=== PATIENT | female | born 1995 | race Asian ===

== ENCOUNTER 2019-05-12 20:57 | Inpatient (IN) | payer OTHER, MEDICAID ==
[~2019-05-12] VITALS: Ht 157.5 cm; Wt 64.9 kg
[2019-05-12 22:24] LABS: BASOPHIL % 0.2 % (0-2); PLATELET COUNT 230 x10^3mcL (130-400); RED CELL DISTRIBUTION WIDTH 13.4 % (11.5-14.5)
--- NOTE | 2019-05-12 22:31 | NUR ---
PT UNABLE TO PROVIDE URINE AT THIS TIME. MADE AWARE. PT DENIES POSSIBILITY OF AT THIS TIME
--- NOTE | 2019-05-12 22:33 | NUR ---
PT PRESENTS TO ED WITH C/O GENERALIZED WEAEKNESS AND NAUSEA. PT STATES THAT SHE HAD GASTRIC BYPASS ON 02/09 WHERE SHE LOST ALMOST 100 LBS SINCE THEN. PER PT STARTING ON SATURDAY SHE STARTED TO FEEL VERY WEAK AND NAUSEOUS AND HAS NOT BEEN ABLE TO EAT OR DRINK ANYTHING. PT SKIN WNL HOWEVER PT LIPS ARE DRY AND CRACKED. PT AXO X4. PT RESP ARE E/U. PT ABLE TO AMBULATE WITH STEADY GAIT. ABDOMEN IS SOFT/ROUND AND NONDISTENDED. PT INCISION IS CLEAN/DRY/INTACT AND PT DENIES ANY ABDOMINAL PAIN. NAD AT THIS TIME. PT CONNECTED TO FULL CM AND PULSE OX MONITORS. FAMILY AT BEDSIDE
[2019-05-12 22:53] LABS: ALBUMIN 4.3 g/dL (3.4-5.0); ALKALINE PHOSPHATASE 66 U/L (46-116); ALT/SGPT 10 U/L (14-59); AST/SGOT 23 U/L (15-37); BILIRUBIN TOTAL 1.07 mg/dL (0.20-1.00); CALCIUM 9.5 mg/dL (8.5-10.1); CARBON DIOXIDE 19.9 mmol/L (21-32); CHLORIDE SERUM 97 mmol/L (98-107); CREATININE SERUM 0.8 mg/dL (0.6-1.0); GFR1 > 60 mL/min; GLUCOSE SERUM 92 mg/dL (74-106); SODIUM SERUM 138 mmol/L (136-145)
[2019-05-12 22:55] LABS: POTASSIUM SERUM 2.1 mmol/L (3.5-5.1)
[2019-05-12 22:56] LABS: T3 TOTAL 0.51 ng/mL
[2019-05-12 23:05] LABS: FREE T4 0.55 ng/dL (0.76-1.46)
--- NOTE | 2019-05-12 23:19 | NUR ---
PT AMBULATED TO RESTROOM WITH STEADY GAIT AND STATES SHE FEELS NAUSEOUS AND LIKE SHE IS GOING TO HAVE DIARRHEA
[2019-05-12 23:29] LABS: FREE THYROXINE INDEX 1.2 ug/dL (1.4-4.5); T4(THYROXINE) 4.1 ug/dL (4.7-13.3)
[2019-05-13] VITALS (7 sets, daily range): BP systolic 91–110; BP diastolic 49–66; Ht 157.5 cm; Wt 64.9 kg
[2019-05-13 00:03] LABS: UA SPECIFIC GRAVITY 1.025 (1.005-1.035); microscopic required? YES; urine erythrocyte NEGATIVE (NEGATIVE)
[2019-05-13] MEDS ORDERED: LEVOTHYROXINE0.15 M2 (00:48)
[2019-05-13] MEDS ORDERED: OXYCODONE HYDRO10 M1 PO (00:49)
--- NOTE | 2019-05-13 00:53 | NUR ---
CARTER GOODSON AGREES TO HANG THE SECOND BAG OF POTASSIUM THAT WILL BE SENT UP WITH THE PT
--- NOTE | 2019-05-13 00:53 | NUR ---
REPORT GIVEN TO CARTER GOODSON
--- NOTE | 2019-05-13 01:05 | NUR ---
RECEIVED PT FROM ED VIA EYAL, CAME IN DUE TO WEAKNESS. AAOX4. DENIES HEADACHE/DIZZINESS. ABLE TO FOLLOW COMMANDS. NO SOB NOTED, LUNG SOUNDS CTA. DENIES CHEST PAIN/PRESSURE. SR ON THE MONITOR. DENIES ABDOMINAL DISCOMFORT. BOWEL SOUNDS ACTIVE. VOIDS. C/O WEAKNESS. ABLE TO MOVE ALL EXTREMITIES, W/ RLE PROSTHESIS. IV SITE ON THE RAC IS PATENT AND INTACT. RECEIVED PT FROM ED W/ NS AND POTASSIUM CHLORIDE ONGOING. SIDE RAILS UPX2. CALL LIGHT ON REACH. ENDORSED TO PRIMARY NURSE CARTER FOR CONTINUITY OF CARE
[2019-05-13 01:28] LABS: PHOSPHOROUS 3.3 mg/dL (2.5-4.9)
[2019-05-13 01:47] LABS: CHOLESTEROL/HDL RATIO 4.6
--- NOTE | 2019-05-13 02:51 | NUR ---
ROUNDS MADE. PT AWAKE DENIES ANY PAIN. NO SIGNS OF DISTRESS. IV INFUSING WELL. FAMILY AT BEDSIDE. WILL MONITOR.
[2019-05-13 06:20] LABS: BASOPHIL % 0.5 % (0-2); PLATELET COUNT 218 x10^3mcL (130-400); RED CELL DISTRIBUTION WIDTH 14.1 % (11.5-14.5)
--- NOTE | 2019-05-13 06:22 | NUR ---
PT SLEPT POORLY THROUGHOUT THE NIGHT. BREATHING EVEN AND UNLABORED. NO SIGNS OF DISTRESS NOTED. IV PATENT, INFUSING WELL. PT AMBULATORY WITH STEADY GAIT. CALL BUTTON WITHIN REACH. SAFETY PRECAUTIONS IN PLACE. WILL CONTINUE TO MONITOR AND ENDORSE CARE TO DAY SHIFT RN.
[2019-05-13 06:40] LABS: CALCIUM 8.4 mg/dL (8.5-10.1); CARBON DIOXIDE 17.8 mmol/L (21-32); CHLORIDE SERUM 107 mmol/L (98-107); CREATININE SERUM 0.6 mg/dL (0.6-1.0); GFR1 > 60 mL/min; GLUCOSE SERUM 64 mg/dL (74-106); MAGNESIUM 1.9 mg/dL (1.8-2.4); PHOSPHOROUS 3.3 mg/dL (2.5-4.9); SODIUM SERUM 142 mmol/L (136-145)
--- NOTE | 2019-05-13 07:00 | NUR ---
RECIEVED PT RESTING IN BED WITH NO C/O PAIN OR DISTRESS. A/O X4 WITH NO DIAZ OR DIZZINESS. TELE#10 CONNECTED TO PT, DENIES ANY CP OR PRESSURE. NS 100ML/HR RUNNING IN RAC, INTACT AND PATENT WITH NO REDNESS OR INFLAMMATION. SAFETY PREACUTIONS IN PLACE, CALL LIGHT WITHIN REACH, WILL MONITOR.
--- NOTE | 2019-05-13 07:20 | NUR ---
PT AWAKE DENIES ANY PAIN. NO SIGNS OF DISTRESS. ENDORSED CARE TO DAY SHIFT RN, ALL QUESTIONS ADDRESSED.
--- NOTE | 2019-05-13 08:58 | NUR ---
POTASSIUM 3.0, COVERED WITH PO AND IV POTASSIUM ORDERS. NEW ORDERS FOR NPO AND DEXTROSE 5% IV, WILL CARRY OUT NEW ORDERS.
--- NOTE | 2019-05-13 12:18 | NUR ---
PT ATE BREAKFAST THIS MORNING, CLARIFIED RATE FOR DEXTROSE %5, TO BE GIVEN AT 100ML/HR. BS AT 62, GAVE PT ORANGE JUICE AND WILL START DEXTROSE NOW. WILL MONITOR BS.
--- NOTE | 2019-05-13 15:29 | NUR ---
BS NOW AT 54, GAVE PT MORE ORANGE JUICE. NOTIFIED DR LEE, WILL FOLLOW THROUGH WITH ANY NEW ORDERS. LIPASE DRAWN AT 1500, RESULTS STILL PENDING.
--- NOTE | 2019-05-13 15:48 | NUR ---
50% DEXTROSE GIVEN PER EMAR, WILL RECHECK BS.
[2019-05-13 15:50] LABS: GLUCOSE SERUM 54 mg/dL (74-106)
[2019-05-13 16:01] LABS: AMPHETAMINE QUAL UR NONE DETECTED (See below)
--- NOTE | 2019-05-13 16:10 | NUR ---
PT BS 232, DR SUAREZ NOTIFED. NO COVERAGE AND RECHECK AT [address] SUAREZ. WILL MONITOR.
[2019-05-13 16:32] LABS: LIPASE 2725 IU/L (73-393)
--- NOTE | 2019-05-13 16:39 | NUR ---
PT LIPASE RESULT CANME BACK AT 2,725, DR SUAREZ NOTIFIED, WILL FOLLOW THROUGH WITH ANY NEW ORDERS. PT STILL NPO. SAFETY PRECAUTIONS IN PLACE, CALL LIGHT WITHIN REACH, WILL MONITOR.
--- NOTE | 2019-05-13 17:40 | NUR ---
1500: PT POTASSIUM LEVEL RESULT AT 3.0, DR SUAREZ NOTIFIED, WILL CARRY OUT ANY NEW ORDERS. WILL CONTINUE TO MONITOR.
--- NOTE | 2019-05-13 18:31 | NUR ---
PT STABLE AT THIS TIME WITH NO C/O PAIN OR DISTRESS. TOLERATED ALL CARES WELL, VS WNL. AWARE OF MOST CURRENT LAB VALUES. NEXT POTASSIUM COVERAGE SCHEDULED AT 1999. A/O X4 WITH NO DIAZ OR DIZZINESS. TELE#10 CONNECTED TO PT. DENIES CP OR PRESSURE. NS RUNNING AT 100ML/HR IN RAC, INTACT AND PATENT WITH NO REDNESS OR INFLAMMATION NOTED. SAFETY PRECAUTIONS IN PLACE, CALL LIGHT WITHIN REACH, WILL ENDORSE TO NIGHT NURSE.
--- NOTE | 2019-05-13 19:38 | NUR ---
RECEIVED PATIENT IN BED AWAKE, ALERT AND ORIENTED WITH NO SIGN OF ACUTE DISTRESS. BREATHING EASY AND NOBNLABOR SATTING AT 95% RA. TELE#10 NSR ON MONITOR, DENIES CHESTPAIN. IV TO RAC INTACT AND INFUSING WELL. INSTRUCTION ON NPO PROVIDED,PATIENT VERBALIZED UNDERSTANDING. WILL CONTINUE TO MONITOR. CALL LIGHT WITHIN REACH.
--- NOTE | 2019-05-13 20:40 | NUR ---
BLOOD SUGAR CHECKED- 54 DR RODRIGEZ SAYED MADE AWARE . IV CHANGED TO D5NS AND ORANGE JUICE GIVEN TO PATIENT. WILL CONTINUE TO MONITOR.
--- NOTE | 2019-05-13 20:59 | NUR ---
BLOOD SUGAR RECHECKED- 99 AFTER IV CHANGED TO D5NS
--- NOTE | 2019-05-14 01:22 | NUR ---
APPEAR TO BE SLEEPIN THIS TIME BREATHING EASY AND NONLABOR. WILL CONTINUE TO MONITOR.
--- NOTE | 2019-05-14 05:14 | NUR ---
SLEPT AT LONG INTERVALS. DENIES PAIN AND DISCOMFORT THE ENTIRE SHIFT. ALL NEEDS ATTENDED.
[2019-05-14 05:33] VITALS: BP 104/58
[2019-05-14 06:13] LABS: BASOPHIL % 0.4 % (0-2); PLATELET COUNT 195 x10^3mcL (130-400); RED CELL DISTRIBUTION WIDTH 13.9 % (11.5-14.5)
[2019-05-14 06:21] LABS: CALCIUM 8.4 mg/dL (8.5-10.1); CHLORIDE SERUM 109 mmol/L (98-107); CREATININE SERUM 0.5 mg/dL (0.6-1.0); GFR1 > 60 mL/min; GLUCOSE SERUM 71 mg/dL (74-106); MAGNESIUM 1.7 mg/dL (1.8-2.4); PHOSPHOROUS 2.2 mg/dL (2.5-4.9); SODIUM SERUM 142 mmol/L (136-145)
[2019-05-14 06:50] LABS: POTASSIUM SERUM 2.9 mmol/L (3.5-5.1)
--- NOTE | 2019-05-14 07:05 | NUR ---
RECIEVED PT COMFORTABLY RESTING IN BED WITH NO C/O PAIN OR DISTRESS. A/O X4 WITH NO DIAZ OR DIZZINESS. TELE#10 CONNECTED TO PT. DENIES CP OR PRESSURE. D5NS 100ML/HR RUNNING IN RAC, INTACT AND PATENT WITH NO REDNESS OR INFLAMMATION NOTED. SAFETY PRECAUTIONS IN PLACE, CALL LIGHT WITHIN REACH, WILL MONITOR.
--- NOTE | 2019-05-14 08:11 | NUR ---
SPOKE WITH DR MOLINA REGARDING PT POTASSIUM LEVEL OF 2.9, WILL FOLLOW THROUGH WITH ANY NEW ORDERS. WILL MONITOR.
--- NOTE | 2019-05-14 08:33 | NUR ---
FIRST K-RIDER STARTED PER EMAR. INFUSING WELL, WILL MONITOR PT.
[2019-05-14 08:50] VITALS: BP 106/63
[2019-05-14 09:27] LABS: rbc morphology (normal/abnorm) NORMAL (NORMAL)
--- NOTE | 2019-05-14 11:24 | NUR ---
K-RIDER #2 STARTED, INFUSING WELL. PT TOLERATING WELL. BS RESULT AT 68, GAVE PT ORANGE JUICE AND WILL RECHECK RESULT. D5% NS 100ML/HR STILL RUNNING CONTINUOUS. WILL MONITOR.
[2019-05-14 12:13] VITALS: BP 96/54
[2019-05-14 15:54] VITALS: BP 107/64
[2019-05-14 15:56] VITALS: BP 107/64
--- NOTE | 2019-05-14 16:30 | NUR ---
PT STABLE TO DISCHARGE PER MD ORDER. ALL CARES TOLERATED WELL. VS WNL AND BS WNL. DISCHARGE INSTRUCTIONS AND EDUCATION GIVEN TO PT AND SHE VERBALIZES UNDERSTANDING. ALL DISCHARGE FORMS SIGNED. IV REMOVED WITH CATHETER INTACT, NO REDNESS OR INFLAMMATION NOTED. ID BAND REMOVED FROM PT. TELE MONITOR #1 RETURNED TO PROJ MGR. PT ESCORTED DOWN TO LOBBY VIA WC BY STIVEN. ALL PERSONAL BELONGINGS IN HAND.
--- NOTE | 2019-05-15 16:07 | NUR ---
Nutrition consult for malnutrition: consult ordered due to low lytes and pt in need of diet education after recent gastric bypass surgery, I spoke with pt at bedside and reviewed handout titled Phase 4: Stablization Diet for Post Bariatric Surgery Patients. Discussed high potassium foods pt can eat to ensure she gets adequate K, told her she must have 3-4 g K daily, eat small frequent meals and received nutrient dense foods to eat. Pt verbalized understanding.
== END 2019-05-14 16:51 | disposition home or self-care (01) | DRG 425 ==
LOC: ED 20:57 → DU 23:54
PROVIDERS: Emergency Medicine; ADMIT Internal Medicine
DX: E87.6 Hypokalemia (principal); K85.90 Acute pancreatitis without necrosis or infection, unspecified; E87.8 Other disorders of electrolyte and fluid balance, not elsewhere classified; E78.00 Pure hypercholesterolemia, unspecified; E03.9 Hypothyroidism, unspecified; Z98.84 Bariatric surgery status; Z89.431 Acquired absence of right foot; Z68.26 Body mass index [BMI] 26.0-26.9, adult
CPT/HCPCS: 82947; 82962; 84439; G0378; J2405; J3480; J3490; J7030; J7042; J7060; Q0092

== ENCOUNTER 2019-09-08 22:00 | Emergency (ER) | payer OTHER ==
[~2019-09-08] VITALS: Ht 162.6 cm; Wt 53.5 kg
[~2019-09-08 22:00] MED LIST: LEVOTHYROXINE0.15 M2; OXYCODONE HYDRO10 M1 PO
[2019-09-08 22:09] VITALS: Ht 162.6 cm; Wt 53.5 kg
[2019-09-08 23:49] LABS: microscopic required? YES; urine erythrocyte NEGATIVE (NEGATIVE)
[2019-09-09 01:03] VITALS: BP 138/84
== END 2019-09-09 01:03 | disposition home or self-care (01) ==
LOC: ED 22:00
PROVIDERS: Emergency Medicine
DX: N39.0 Urinary tract infection, site not specified (principal); Z98.84 Bariatric surgery status
CPT/HCPCS: J1885; Q0092